=== PATIENT | male | born 1990 ===

== ENCOUNTER → 2020-03-21 17:56 | Outpatient (CLI) | payer SELFPAY ==
--- NOTE | 2021-11-06 09:42 | PN.PCM_ITS ---
History of Present Illness Date of Service: 11/06/21 Progress of Wound: 31-year-old male presents with healing left plantar foot wound. Patient got the wound after he stepped off a rock while he was vacationing in [facility]. Patient is diabetic with neuropathy. He was treated in the emergency room which the wound was primarily closed. This he subsequently developed an infection which led to dehiscence of the incision. At this time he has been improving well with our treatment via offloading heel weightbearing in a cam walking boot and weekly debridements. He performs daily dressing changes consisting of silver alginate DSD and compression. He has no constitutional symptoms or pain at this time and notes significant resolution of his drainage to the wound site. Physical Exam Narrative Patient alert oriented to person place and time Neurovascular status unchanged from previous visit Full-thickness ulceration noted to the plantar medial left foot appears to be significantly healed at this time no debridement was performed today no deep probing undermining or signs of infection. There is a small open area along the apex of the L-shaped laceration that the patient had suffered. Musculoskeletal no changes. Assessment/Plan Assessment/Plan (1) Non-pressure chronic ulcer of other part of left foot with fat layer exposed: CODE(S): L97.522 - Non-pressure chronic ulcer of other part of left foot with fat layer exposed PLAN: Patient examined evaluated, all findings cussed with patient in great detail. Patient's wound is significantly improving at this time. I anticipate that the wound will heal within the next 2 weeks. I recommend continued dressing changes with silver alginate DSD daily. Patient will continue offloading site with Cam walking boot to heel weightbearing. Patient will continue baby aspirin daily for DVT prophylaxis. Patient will follow up in 2 weeks at which time we will consider fitting for di abetic shoes. He will contact us or present to the ED if he notes any signs or symptoms of infection.
== END ==
PROVIDERS: Visit Provider Family Medicine
DX: Z00.00 Encounter for general adult medical examination without abnormal findings (principal)